=== PATIENT | female | born 1955 | race Caucasian/White ===

== ENCOUNTER → 2016-12-26 13:42 | Outpatient (CLI) | payer BC ==
[2011-05-21 07:22] VITALS: BMI 33.5
== END | disposition home or self-care (01) ==
LOC: D.US 13:42
DX: Z79.01 Long term (current) use of anticoagulants (principal); R60.9 Edema, unspecified

== ENCOUNTER → 2017-01-30 11:24 | Outpatient (CLI) | payer BC ==
[2011-05-21 07:22] VITALS: BMI 33.5
== END | disposition home or self-care (01) ==
LOC: D.MRI 11:24
DX: G31.84 Mild cognitive impairment of uncertain or unknown etiology (principal)

== ENCOUNTER 2017-05-21 05:24 | Day surgery (SDC) | payer BC ==
[2017-05-19 12:26] LABS: HEMATOCRIT 40.9 % (36.0-48.0); HEMOGLOBIN 13.4 g/dL (12-16); MCH 29.5 pg (26.0-34.0); MCHC 32.8 g/dL (31.0-37.0); MCV 90.1 fL (80.0-100.0); MEAN PLATELET VOLUME 10.4 fL (7.4-10.4); RBC 4.54 10x6/uL (4.00-5.40); RDW 13.2 % (11.5-14.5); WBC 9.1 10x3/uL (4.8-10.8)
[2017-05-19 12:38] LABS: APTT 27.9 SECONDS (22.8-39.4); INR 0.95 (0.85-1.17); PROTIME 12.3 SECONDS (11.6-15.0)
[~2017-05-21] VITALS: Ht 162.6 cm; Wt 88.5 kg
--- NOTE | ~2017-05-21 | OP ---
PATIENT NAME: CASANDRA PARHAM MEDICAL RECORD: [id number] :59 LOCATION:D.OPS ADMISSION DATE: SURGEON: RAÚL YI MD DATE OF OPERATION: 05/21/2017 PREOPERATIVE DIAGNOSIS: Bilateral carpal tunnel syndrome. POSTOPERATIVE DIAGNOSIS: Bilateral carpal tunnel syndrome. PROCEDURE: Bilateral carpal tunnel release. SURGEON: Raúl Yi MD ANESTHESIA: General. INTRAOPERATIVE COMPLICATIONS: None. SUMMARY OF PATHOLOGIC FINDINGS: The patient had very tight transverse carpal ligament consistent with preoperative diagnosis bilaterally. OPERATIVE SUMMARY IN DETAIL: After obtaining the appropriate preoperative orthopedic surgery consent as well as anesthetic consultation, evaluation and clearance, the patient was brought to the operating room and placed on the operating table in supine position. After adequate general laryngeal mask airway was administered, tourniquet was placed about the proximal aspect of the bilateral upper extremities. Bilateral upper extremities were prepped and draped in a routine sterile fashion. The right hand was approached first. The right hand was elevated and exsanguinated, and tourniquet was inflated to 250 mmHg. Routine midline incision was made in line with the fourth metacarpal ray, taken down to the level of the transverse carpal ligament, was identified. The median nerve was identified and protected throughout the case under direct visualization. Alexus light knife was then used to release the entire transverse carpal ligament to the proximal wrist crease. Having completed this, wound was irrigated and closed with 4-0 Prolene in a mattress fashion. The area was locally anesthetized with 0.25% Marcaine plain. Dressings were placed on this and the attention was then turned to the left upper extremity. Left upper extremity was elevated and exsanguinated, and tourniquet was inflated to 250 mmHg. Again, a midline incision was made in line with the fourth metacarpal ray, taken down to the level of transverse carpal ligament. Median nerve was identified and protected throughout the remainder of the incision. The Alexus light knife was then used to release the rest of the transverse carpal ligament to the proximal wrist crease. Again, the wound was irrigated and closed with 4-0 Prolene in a mattress fashion. Again, the area was locally anesthetized with 0.25% Marcaine plain. Sterile dressings were applied. The patient was awakened and taken to the recovery room in stable condition. All final needle and sponge counts were correct. TRANSINT:[id number] Voice Confirmation ID: [id number] DOCUMENT ID: [id number] OPERATIVE REPORT [id number] CASANDRA PARHAM MD, RAÚL SHEN at 1641 CC: [id number] DICTATION DATE: 05/21/17 1320 [facility] LABORER: 05/21/17 135[id number] [place] [address]
[2017-05-21] MEDS ORDERED: BUPROPION XL300 MG PO (09:48)
[2017-05-21] MEDS ORDERED: COUMADIN10 MG PO (09:48)
[2017-05-21] MEDS ORDERED: CYMBALTA60 MG PO (09:48)
[2017-05-21] MEDS ORDERED: OXYBUTYNIN CHLOR5 MG PO (09:49)
[2017-05-21 09:52] VITALS: BP 140/69; Ht 162.6 cm; Wt 88.5 kg
[2017-05-21] MEDS ORDERED: HYDROCODONE-APA1 TAB PO (13:16)
== END 2017-05-21 16:05 | disposition home or self-care (01) ==
LOC: D.OPS 05:24 → D.PAN 16:45
PROVIDERS: Anesthesiology
DX: G56.03 Carpal tunnel syndrome, bilateral upper limbs (principal); Z01.812 Encounter for preprocedural laboratory examination

== ENCOUNTER → 2018-09-14 10:37 | Outpatient (CLI) | payer BC ==
[2017-05-21 09:52] VITALS: BMI 33.5
[~2018-09-14 10:37] MED LIST: BUPROPION XL300 MG PO; COUMADIN10 MG PO; CYMBALTA60 MG PO; HYDROCODONE-APA1 TAB PO; OXYBUTYNIN CHLOR5 MG PO
== END | disposition home or self-care (01) ==
LOC: D.US 10:30
PROVIDERS: ATTEND Family Medicine
DX: R94.5 Abnormal results of liver function studies (principal)

== ENCOUNTER 2019-11-30 18:46 | Inpatient (IN) | payer BC ==
[~2019-11-30] VITALS: Ht 162.6 cm; Wt 77.3 kg
[2019-11-30 19:27] LABS: BASOPHILS 0.3 % (0-2); EOSINOPHILS 0.1 % (0-7); HEMOGLOBIN 13.9 g/dL (12-16); IMMATURE GRANULOCYTES 0.2 % (0-5); LYMPHOCYTES 14.3 % (15-50); MCH 29.6 pg (26.0-34.0); MCHC 33.9 g/dL (31.0-37.0); MCV 87.4 fL (80.0-100.0); MEAN PLATELET VOLUME 10.5 fL (7.4-10.4); MONOCYTES 8.3 % (2-11); NEUTROPHILS 76.8 % (40-80); RBC 4.69 10x6/uL (4.00-5.40); RDW 12.2 % (11.5-14.5)
[2019-11-30 19:28] LABS: PLATELET COUNT 155 10x3/uL (130-400)
[2019-11-30 19:37] LABS: INR 1.34 (0.85-1.17); PROTIME 16.5 SECONDS (11.6-15.0)
[2019-11-30 19:38] LABS: APTT 31.6 SECONDS (22.8-39.4)
[2019-11-30 19:39] LABS: CALC OSMOLALITY 272 mosm/kg (275-300); CALCIUM 8.7 mg/dL (8.5-10.1); CARBON DIOXIDE 30.3 mmol/L (21.0-32.0); CHLORIDE - SERUM 99 mmol/L (98-107); CREATININE - SERUM 0.7 mg/dL (0.6-1.3); GLUCOSE 127 mg/dL (74-106); POTASSIUM - SERUM 3.5 mmol/L (3.5-5.1); SODIUM 136 mmol/L (136-145); UREA NITROGEN 9 mg/dL (7-18); eGFR NON AFRICAN AMERICAN 90 mL/min (90-120)
[2019-11-30 19:52] LABS: ALBUMIN 3.4 g/dL (3.4-5.0); ALKALINE PHOSPHATASE 64 U/L (30-120); ALT (SGPT) 22 U/L (10-68); C-REACTIVE PROTEIN 7.2 mg/dL (0.0-0.9); PRO BNP 74 pg/mL (0-125); PROTEIN - SERUM 7.9 g/dL (6.4-8.2); TROPONIN-I < 0.017 ng/mL (0.000-0.060)
[2019-11-30 19:58] LABS: D-DIMER-QUANTITATIVE > 20.00 ug/mLFEU (0.20-0.54)
--- NOTE | 2019-11-30 19:58 | NUR ---
CRITICAL LAB, D-DIMER >20, PROVIDER NOTIFIED.
--- NOTE | 2019-11-30 21:27 | NUR ---
AYESHAID SPECIMAN OBTAINED FROM LEFT NARE, WALKED TO LAB,
[2019-12-01 00:46] VITALS: Ht 162.6 cm; Wt 77.3 kg
[2019-12-01 04:00] VITALS: BP 122/61
[2019-12-01 09:48] VITALS: BP 141/66
[2019-12-01 11:40] LABS: BASOPHILS 0.5 % (0-2); EOSINOPHILS 0.2 % (0-7); HEMATOCRIT 38.9 % (36.0-48.0); HEMOGLOBIN 13.1 g/dL (12-16); LYMPHOCYTES 14.4 % (15-50); MCH 29.8 pg (26.0-34.0); MCHC 33.7 g/dL (31.0-37.0); MCV 88.4 fL (80.0-100.0); MEAN PLATELET VOLUME 10.5 fL (7.4-10.4); MONOCYTES 7.5 % (2-11); NEUTROPHILS 77.4 % (40-80); PLATELET COUNT 176 10x3/uL (130-400); RDW 12.2 % (11.5-14.5); WBC 6.2 10x3/uL (4.8-10.8)
[2019-12-01 11:56] LABS: ALBUMIN 2.9 g/dL (3.4-5.0); ALKALINE PHOSPHATASE 58 U/L (30-120); ALT (SGPT) 19 U/L (10-68); BILIRUBIN - TOTAL 0.33 mg/dL (0.2-1.3); CALC OSMOLALITY 279 mosm/kg (275-300); CALCIUM 8.1 mg/dL (8.5-10.1); CHLORIDE - SERUM 103 mmol/L (98-107); CREATININE - SERUM 0.6 mg/dL (0.6-1.3); GLUCOSE 214 mg/dL (74-106); MAGNESIUM - SERUM 1.8 mg/dL (1.8-2.4); POTASSIUM - SERUM 3.6 mmol/L (3.5-5.1); PROTEIN - SERUM 7.2 g/dL (6.4-8.2); SODIUM 138 mmol/L (136-145); TROPONIN-I < 0.017 ng/mL (0.000-0.060); UREA NITROGEN 6 mg/dL (7-18); eGFR NON AFRICAN AMERICAN > 90 mL/min (90-120)
[2019-12-01 20:00] VITALS: BP 124/61
[2019-12-02] VITALS: BP 128/53
[2019-12-02 04:00] VITALS: BP 135/75
[2019-12-02 06:02] LABS: ALBUMIN 2.8 g/dL (3.4-5.0); ALKALINE PHOSPHATASE 55 U/L (30-120); ALT (SGPT) 18 U/L (10-68); BILIRUBIN - TOTAL 0.33 mg/dL (0.2-1.3); CALCIUM 7.8 mg/dL (8.5-10.1); CARBON DIOXIDE 32.1 mmol/L (21.0-32.0); CHLORIDE - SERUM 105 mmol/L (98-107); CREATININE - SERUM 0.7 mg/dL (0.6-1.3); MAGNESIUM - SERUM 1.9 mg/dL (1.8-2.4); PROTEIN - SERUM 6.9 g/dL (6.4-8.2); SODIUM 141 mmol/L (136-145); UREA NITROGEN 5 mg/dL (7-18); eGFR NON AFRICAN AMERICAN 90 mL/min (90-120)
[2019-12-02 06:05] LABS: CALC OSMOLALITY 280 mosm/kg (275-300); GLUCOSE 144 mg/dL (74-106); POTASSIUM - SERUM 4.5 mmol/L (3.5-5.1)
[2019-12-02 06:21] LABS: BASOPHILS 0.3 % (0-2); EOSINOPHILS 0.6 % (0-7); HEMATOCRIT 37.8 % (36.0-48.0); HEMOGLOBIN 12.4 g/dL (12-16); IMMATURE GRANULOCYTES 0.3 % (0-5); LYMPHOCYTES 23.5 % (15-50); MCHC 32.8 g/dL (31.0-37.0); MCV 88.5 fL (80.0-100.0); MEAN PLATELET VOLUME 10.6 fL (7.4-10.4); NEUTROPHILS 63.3 % (40-80); PLATELET COUNT 202 10x3/uL (130-400); RBC 4.27 10x6/uL (4.00-5.40); RDW 12.5 % (11.5-14.5); WBC 6.2 10x3/uL (4.8-10.8)
[2019-12-02 08:20] VITALS: BP 156/73
--- NOTE | 2019-12-02 18:19 | NUR ---
PT MOVED TO ROOM 2133 DUE TO AC NOT KEEPING ROOM COOL AND UNABLE TO HAVE FAN. SHOWER TAKEN. BELONGINGS BROUGHT UP FROM ER LEFT BY .
[2019-12-02 21:17] VITALS: BP 153/83
[2019-12-03 04:00] VITALS: BP 137/80
--- NOTE | 2019-12-03 05:15 | NUR ---
IV FOUND IN BED, CATHETER TIP INTACT, NO S/S OF BLEEDING AT SITE. LINENS CHANGED. AM LABS DRAWN. DECLINING NEW PIV SITE AT THIS TIME, STATES "I'D LIKE TO WAIT." BED IN LOWEST, SRX1, CALL LIGHT WITHIN REACH. WILL CTM.
[2019-12-03 05:32] LABS: BASOPHILS 0.1 % (0-2); EOSINOPHILS 0.1 % (0-7); HEMATOCRIT 37.1 % (36.0-48.0); HEMOGLOBIN 12.3 g/dL (12-16); IMMATURE GRANULOCYTES 0.3 % (0-5); LYMPHOCYTES 12.9 % (15-50); MCH 28.9 pg (26.0-34.0); MCHC 33.2 g/dL (31.0-37.0); MCV 87.3 fL (80.0-100.0); MEAN PLATELET VOLUME 10.6 fL (7.4-10.4); MONOCYTES 7.8 % (2-11); NEUTROPHILS 78.8 % (40-80); PLATELET COUNT 221 10x3/uL (130-400); RBC 4.25 10x6/uL (4.00-5.40); RDW 12.1 % (11.5-14.5); WBC 7.6 10x3/uL (4.8-10.8)
[2019-12-03 05:44] LABS: INR 3.73 (0.85-1.17); PROTIME 36.2 SECONDS (11.6-15.0)
[2019-12-03 05:50] LABS: ALBUMIN 2.7 g/dL (3.4-5.0); ALKALINE PHOSPHATASE 67 U/L (30-120); ALT (SGPT) 20 U/L (10-68); BILIRUBIN - TOTAL 0.19 mg/dL (0.2-1.3); CHLORIDE - SERUM 103 mmol/L (98-107); CREATININE - SERUM 0.7 mg/dL (0.6-1.3); MAGNESIUM - SERUM 1.8 mg/dL (1.8-2.4); PROTEIN - SERUM 7.1 g/dL (6.4-8.2); SODIUM 139 mmol/L (136-145); eGFR NON AFRICAN AMERICAN 90 mL/min (90-120)
[2019-12-03 05:51] LABS: CALC OSMOLALITY 284 mosm/kg (275-300); GLUCOSE 252 mg/dL (74-106); POTASSIUM - SERUM 3.6 mmol/L (3.5-5.1); UREA NITROGEN 8 mg/dL (7-18)
--- NOTE | 2019-12-03 07:00 | NUR ---
RECEIVED REPORT. ASSUMED CARE OF PATIENT. BEDSIDE SHIFT REPORT COMPLETED. WHITE BOARD UPDATED. PATIENT RESTING WITH EYES CLOSED. RESP EVEN AND UNLABORED. PATIENT REMAINS IN ISOLATION FOR COVID+. PATIENT EASILY AROUSED. DENIES NEEDS AT THIS TIME. NO DISTRESS.
--- NOTE | 2019-12-03 07:52 | NUR ---
NOC NURSE HERNANDEZ ATTEMPTED IV PLACEMENT TO RIGHT ARM X 2 STICKS AND UNSUCCESSFUL.
[2019-12-03 08:00] VITALS: BP 123/72
--- NOTE | 2019-12-03 11:10 | NUR ---
FSBS 138. NO INSULIN PER SLIDING SCALE.
--- NOTE | 2019-12-03 17:13 | NUR ---
FSBS 348. 8 UNITS INSULIN ADMINISTERED PER SLIDING SCALE. DR. CALLAHAN AT BEDSIDE FOR ROUNDS AT THIS TIME.
[2019-12-03 21:15] VITALS: BP 174/78
[2019-12-04 05:24] VITALS: BP 140/68
[2019-12-04 05:59] LABS: HEMATOCRIT 38.2 % (36.0-48.0); HEMOGLOBIN 12.7 g/dL (12-16); LYMPHOCYTES 20.7 % (15-50); MCH 29.1 pg (26.0-34.0); MCHC 33.2 g/dL (31.0-37.0); MCV 87.4 fL (80.0-100.0); MEAN PLATELET VOLUME 10.9 fL (7.4-10.4); NEUTROPHILS 74.6 % (40-80); PLATELET COUNT 255 10x3/uL (130-400); RBC 4.37 10x6/uL (4.00-5.40); WBC 8.8 10x3/uL (4.8-10.8)
[2019-12-04 06:20] LABS: ALBUMIN 2.8 g/dL (3.4-5.0); ALKALINE PHOSPHATASE 64 U/L (30-120); BILIRUBIN - TOTAL 0.21 mg/dL (0.2-1.3); CALCIUM 8.4 mg/dL (8.5-10.1); CHLORIDE - SERUM 103 mmol/L (98-107); MAGNESIUM - SERUM 1.8 mg/dL (1.8-2.4); POTASSIUM - SERUM 3.4 mmol/L (3.5-5.1); PROTEIN - SERUM 7.1 g/dL (6.4-8.2); SODIUM 142 mmol/L (136-145); UREA NITROGEN 7 mg/dL (7-18)
[2019-12-04 06:24] LABS: ALT (SGPT) 29 U/L (10-68); CALC OSMOLALITY 283 mosm/kg (275-300); CREATININE - SERUM 0.5 mg/dL (0.6-1.3); GLUCOSE 151 mg/dL (74-106); eGFR NON AFRICAN AMERICAN > 90 mL/min (90-120)
[2019-12-04 06:28] LABS: INR 8.23 (0.85-1.17); PROTIME 66.6 SECONDS (11.6-15.0)
--- NOTE | 2019-12-04 07:00 | NUR ---
RECEIVED REPORT. ASSUMED CARE OF PATIENT. CALL LIGHT WITHIN REACH. RESP EVEN AND UNLABORED. WHITE BOARD UPDATED. BEDSIDE SHIFT REPORT COMPLETED. DENIES NEEDS AT THIS TIME. NO DISTRESS. PATIENT REMAINS IN DROPLET ISOLATION FOR COVID + RESULTS.
--- NOTE | 2019-12-04 11:02 | NUR ---
FSBS 217. 4 UNITS HUMULIN ADMINISTERED PER SLIDING SCALE.
[2019-12-04 14:19] LABS: INR 8.45 (0.85-1.17); PROTIME 67.9 SECONDS (11.6-15.0)
--- NOTE | 2019-12-04 14:39 | NUR ---
22 GAUGE IV PLACED TO RIGHT FOREARM X 1 STICK. GOOD BLOOD RETURN, EASY FLUSH. TAPED DATED AND SECURED. PATIENT TOLERATED IV PLACEMENT WELL. 22 GAUGE IV REMOVED FROM RIGHT HAND. CATHETER TIP INTACT. NO BLEEDING TO SITE AFTER PRESSURE HELD X 1 MINUTE. 2X2 GAUZE APPLIED AND SECURED WITH TAPE. PATIENT TOLERATED IV REMOVAL WELL.
[2019-12-04] MEDS ORDERED: OXYBUTYNIN CHLOR5 MG PO (15:20)
[2019-12-04] MEDS ORDERED: XARELTO15 MG PO (15:20)
--- NOTE | 2019-12-04 15:23 | NUR ---
PATIENT IS VERY ANXIOUS. SHE WANTS TO GO HOME AND DOES NOT UNDERSTAND WHY IT HAS BEEN 5 HOURS SINCE TOLD HER SHE COULD GO HOME AND THEIR ISN'T EVEN A DISCHARGE ORDER PLACED. REPEAT PT/INR SLIGHTLY ELEVATED. MADE AWARE OF PATIENT CURRENT SITUATION/CONDITION.
--- NOTE | 2019-12-04 16:26 | NUR ---
SPOKE TO BLILY MEZA APN REGARDING PT'S INR AND XARELTO. SHE CONFERRED WITH DR WALKER. ADVISED TO HAVE PT HOLD XARELTO TONIGHT AND CALL PCP IN AM FOR FURTHER DOSING INSTRUCTIONS. TO INSTRUCT TO RETURN TO ER IF ANY S/S OF ABNORMAL BLEEDING.
--- NOTE | 2019-12-04 17:05 | NUR ---
22 GAUGE IV REMOVED FROM RIGHT FOREARM. PRESSURE HELD X 2 MINUTES. NO BLEEDING FROM SITE. CATHETER TIP INTACT. TOLERATED IV REMOVAL WELL. PATIENT IS BEING DISCHARGED TO HOME. COTTONBALL APPLIED AND SECURED WITH BANDAID.
--- NOTE | 2019-12-04 17:13 | NUR ---
DISCHARGE INSTRUCTIONS PROVIDED TO PATIENT. PATIENT VERBALIZED UNDERSTANDING OF ALL INSTRUCTIONS PROVIDED. PT IS DISCHARGING TO HOME.
--- NOTE | 2019-12-04 17:42 | NUR ---
PATIENT LEFT UNIT VIA WHEEL CHAIR. PATIENT DISCHARGED TO HOME FOR 14 MORE DAYS OF SELF QUARANTINE. PATIENT LEFT UNIT WITH ALL PERSONAL BELONGINGS. PATIENT IN NO DISTRESS UPON LEAVING UNIT. PATIENT THANKED THIS [employer] THAT SHE IS FINALLY GOING HOME AND STATED THE DISCHARGE PROCESS SHOULD BE MORE EFFICIENT REFERRING TO THE DOCTOR STATING THEY CAN GO IN THE AM BUT IT TAKES 8 HOURS TO FINALLY GET TO LEAVE. PATIENT STATES IT CAUSES UNDUE ANXIETY. APOLOGIZED TO THE PATIENT AND SHE WAS ACCEPTING OF THE APOLOGY. NO DISTRESS AT TIME OF DISCHARGE.
== END 2019-12-04 07:45 | disposition home or self-care (01) | DRG 177 ==
LOC: D.ER 18:46 → D.M2 21:41 → OBSVTIME 21:41 → D.M2 21:41
PROVIDERS: Family Medicine; ADMIT Family Medicine Adult Medicine; ATTEND Family Medicine Adult Medicine
DX: U07.1 COVID-19 (principal); J12.89 Other viral pneumonia; D68.2 Hereditary deficiency of other clotting factors; Z79.01 Long term (current) use of anticoagulants; E11.65 Type 2 diabetes mellitus with hyperglycemia; F32.9 Major depressive disorder, single episode, unspecified; Z86.711 Personal history of pulmonary embolism

== ENCOUNTER → 2019-12-27 16:35 | Outpatient (CLI) | payer BC ==
[2019-12-01 00:46] VITALS: BMI 29.2
[~2019-12-27 16:35] MED LIST changes: +XARELTO15 MG PO
== END | disposition home or self-care (01) ==
LOC: D.US 12-26 15:00
PROVIDERS: ATTEND Internal Medicine Medical Oncology
DX: R60.0 Localized edema (principal); R94.5 Abnormal results of liver function studies; E16.9 Disorder of pancreatic internal secretion, unspecified